=== PATIENT | male | born 1965 | race Asian ===

== ENCOUNTER → 2018-10-27 | Outpatient (CLI) | payer BC ==
[2018-10-27 07:04] LABS: BASOPHILS % 1.1 % (0.0-2.0); EOSINOPHILS % 7.2 % (0.0-5.0); HEMATOCRIT. 40.5 % (42.0-52.0); HEMOGLOBIN. 13.6 g/dL (14.0-18.0); LYMPHOCYTES % 20.4 % (20.0-50.0); MEAN CORPUSCULAR HEMOGLOBIN 28.6 pg (28.0-32.0); MEAN PLATELET VOLUME 7.5 fl (7.4-10.4); MONOCYTES % 7.3 % (2.0-8.0); PLATELET 278 x1000/uL (130-400); RED BLOOD CELL COUNT 4.77 mill/uL (4.7-6.1); RED CELL DISTRIBUTION WIDTH 13.7 % (11.6-14.6)
[2018-10-27 08:21] LABS: CHLORIDE 107 mEq/L (98-107)
== END | disposition home or self-care (01) ==
LOC: LAB 06:24
PROVIDERS: ATTEND Internal Medicine
DX: E78.5 Hyperlipidemia, unspecified (principal); M1A.00X0 Idiopathic chronic gout, unspecified site, without tophus (tophi)
CPT/HCPCS: 36415; 83036; 84550

== ENCOUNTER → 2018-11-21 | Outpatient (CLI) | payer BC | END | disposition home or self-care (01) | LOC: RAD 13:49 | PROVIDERS: ATTEND Internal Medicine | DX: R05 Cough (principal) | CPT/HCPCS: 71046 ==

== ENCOUNTER → 2019-08-28 | Outpatient (CLI) | payer BC ==
[2019-08-28 06:51] LABS: CHLORIDE 105 mEq/L (98-107)
[2019-08-28 06:54] LABS: BASOPHILS % 1.1 % (0.0-2.0); EOSINOPHILS % 9.4 % (0.0-5.0); HEMOGLOBIN. 13.8 g/dL (14.0-18.0); LYMPHOCYTES % 24.5 % (20.0-50.0); MEAN CORPUSCULAR HEMOGLOBIN 29.1 pg (28.0-32.0); MEAN CORPUSCULAR VOLUME 86.5 fL (80.0-94.0); MEAN PLATELET VOLUME 7.8 fl (7.4-10.4); MONOCYTES % 7.4 % (2.0-8.0); NEUTROPHILS % 57.6 % (40.0-76.0); PLATELET 274 x1000/uL (130-400); RED BLOOD CELL COUNT 4.74 mill/uL (4.7-6.1); RED CELL DISTRIBUTION WIDTH 13.4 % (11.6-14.6)
[2019-08-28 06:59] LABS: LDL CHOLESTEROL 99 mg/dL (5-100)
[2019-08-28 07:01] LABS: HDL CHOLESTEROL 48 mg/dL (40-59)
== END | disposition home or self-care (01) ==
LOC: LAB 05:56
PROVIDERS: ATTEND Internal Medicine
DX: E78.5 Hyperlipidemia, unspecified (principal); R73.03 Prediabetes
CPT/HCPCS: 36415; 80053; 80061; 83036; 84550; 85025

== ENCOUNTER → 2022-09-24 | Outpatient (CLI) | payer BC ==
[2022-09-24 08:54] LABS: CLARITY URINE CLEAR (CLEAR); COLOR URINE YELLOW (YELLOW); GLUCOSE URINE NEGATIVE (NEGATIVE); KETONES URINE NEGATIVE (NEGATIVE); LEUKOCYTE ESTERASE URINE NEGATIVE (NEGATIVE); NITRITE URINE NEGATIVE (NEGATIVE); OCCULT BLOOD URINE NEGATIVE (NEGATIVE); PH URINE 5.5 (4.5-8.0); PROTEIN URINE TRACE (NEGATIVE); SPECIFIC GRAVITY URINE 1.015 (1.005-1.030); UROBILINOGEN URINE 0.2 E.U./dL (0.2-1.0)
[2022-09-24 08:59] LABS: CHLORIDE 104 mEq/L (98-107); INDEX HEMOLYSI 1 (1-3); INDEX ICTERIC 1 (1-4); INDEX LIPEMIC 1 (1-3); POTASSIUM 3.6 mEq/L (3.5-5.1); SODIUM 137 mEq/L (136-145)
[2022-09-24 09:06] LABS: ALANINE AMINOTRANSFERASE 25 IU/L (13-61); ALBUMIN 3.9 g/dL (3.4-5.0); ASPARTATE AMINOTRANSFERASE 19 IU/L (15-37); BILIRUBIN TOTAL 0.4 mg/dL (0.1-1.0); CALCIUM 8.8 mg/dL (8.5-10.1); CARBON DIOXIDE 28 mEq/L (21-32); GLUCOSE 94 mg/dL (70-105); PROTEIN TOTAL 7.7 g/dL (6.0-8.3); UREA NITROGEN BLOOD 16 mg/dL (7-21); URIC ACID 5.5 mg/dL (2.6-7.2)
[2022-09-24 09:15] LABS: BACTERIA URINE NONE SEEN; RBC URINE NONE SEEN /hpf (0-2); SQUAMOUS EPITHELIAL CELL URINE NONE SEEN /lpf (RARE/1+); WBC URINE 0-2 /hpf (0-2); YEAST URINE NONE SEEN
[2022-09-25 08:08] LABS: *CREATININE RANDOM URINE 105.5 mg/dL (Not Estab.); MICROALBUMIN RANDOM URINE 71.8 ug/mL (Not Estab.)
== END | disposition home or self-care (01) ==
LOC: LAB 08:10
PROVIDERS: ATTEND Internal Medicine
DX: M1A.00X0 Idiopathic chronic gout, unspecified site, without tophus (tophi) (principal); R80.9 Proteinuria, unspecified
CPT/HCPCS: 36415; 80053; 81003; 82043; 82570; 84550